=== PATIENT | female | born 1990 | race African-American/Black ===

== ENCOUNTER 2017-02-02 08:17 | Emergency (ER) | payer OTHER ==
[~2017-02-02] VITALS: Ht 165.1 cm; Wt 67.3 kg
[2017-02-02 08:20] VITALS: BP 142/79
== END 2017-02-02 08:52 | disposition home or self-care (01) ==
LOC: EMS 08:19
DX: J02.9 Acute pharyngitis, unspecified (principal)
CPT/HCPCS: 99283

== ENCOUNTER 2017-06-07 00:15 | Emergency (ER) | payer OTHER ==
[~2017-06-07] VITALS: Ht 162.6 cm; Wt 77.3 kg
[2017-06-07] MEDS ORDERED: KETOROLAC TROMETHAMINE 30 MG/ML VIAL IM ONE (00:45)
[2017-06-07] MEDS ORDERED: ACETAMINOPHEN 325 MG TABLET PO ONE (01:00)
[2017-06-07 01:09] LABS: BASOPHILS % (AUTO) 0.9 % (0.0-2.0); HEMATOCRIT 38.5 % (36-46); HEMOGLOBIN 13.3 g/dL (12.0-16.0); LYMPHOCYTES # (AUTO) 3.2 K/uL (1.0-4.8); LYMPHOCYTES % (AUTO) 43.5 % (22.0-44.0); MEAN CORPUSCULAR HEMOGLOBIN 28.3 pg (26.0-34.0); MEAN CORPUSCULAR HGB CONC 34.5 G/dL (31.0-37.0); MEAN CORPUSCULAR VOLUME 82 fL (80-100); MONOCYTES # (AUTO) 0.6 K/uL (0.1-1.0); MONOCYTES % (AUTO) 8.7 % (2.0-9.0); NEUTROPHILS # (AUTO) 3.2 K/uL (1.8-7.7); NEUTROPHILS % (AUTO) 43.9 % (40.0-70.0); PLATELET COUNT (AUTO) 238 K/uL (150-450); RED BLOOD CELL COUNT(AUTO) 4.69 MIL/uL (4.00-5.20); WHITE BLOOD COUNT (AUTO) 7.3 K/uL (4.5-11.0)
[2017-06-07 01:16] LABS: ANION GAP 5 mmol/L (8-16); CALCIUM, TOTAL 9.6 mg/dL (8.8-10.5); CARBON DIOXIDE 31 mmol/L (22-29); CHLORIDE 103 mmol/L (98-107); CREATININE 1.14 mg/dL (0.60-1.30); GLOMERULAR FILTR. RATE CALC > 60 mL/min (>60); SODIUM SERUM 139 mmol/L (136-145); UREA NITROGEN, BLOOD 18 mg/dL (7-18)
[2017-06-07 01:22] LABS: ALANINE AMINOTRANSFERASE 20 U/L (12-78); ALBUMIN 3.7 g/dL (3.4-5.0); ASPARTATE AMINOTRANSFERASE 19 U/L (15-37); BILIRUBIN,TOTAL 0.4 mg/dL (0.1-1.0); TOTAL PROTEIN, SERUM 7.9 g/dL (6.4-8.2)
[2017-06-07 02:35] LABS: APPEARANCE,URINE CLEAR (CLEAR); GLUCOSE, URINE (UA) NEGATIVE (NEGATIVE); KETONES,URINE NEGATIVE (NEGATIVE); LEUKOCYTE ESTERASE ,URINE NEGATIVE (NEGATIVE); OCCULT BLOOD,URINE NEGATIVE (NEGATIVE); PROTEIN,URINE NEGATIVE (NEGATIVE)
[2017-06-07 02:46] LABS: RBC,URINE None Seen /HPF (0-2); WBC,URINE None Seen /HPF (0-5)
[2017-06-07 03:12] VITALS: BP 128/80
== END 2017-06-07 03:12 | disposition home or self-care (01) ==
LOC: EMS 00:16
DX: G43.909 Migraine, unspecified, not intractable, without status migrainosus (principal)
CPT/HCPCS: 36415; 80053; 81001; 84703; 85025; 93005; 96372; 99285; J1885

== ENCOUNTER 2024-07-16 18:51 | Emergency (ER) | payer BC, OTHER ==
[~2024-07-16] VITALS: Ht 165.1 cm; Wt 40.9 kg
[2024-07-16] MEDS ORDERED: ESCI5TAB16 PO (19:03)
[2024-07-16] MEDS ORDERED: BUPR-562 PO (19:03)
[2024-07-16] MEDS ORDERED: AMLO5TAB66 PO (19:03)
[2024-07-16 19:12] LABS: COVID AG,FIA SOURCE NASAL SWAB
[2024-07-16 19:22] LABS: RAPID GROUP A STREP NEGATIVE (NEGATIVE)
[2024-07-16 19:32] LABS: INFLUENZA TYPE A NEGATIVE FOR TYPE A (NEGATIVE); INFLUENZA TYPE B NEGATIVE FOR TYPE B (NEGATIVE); SARS-COV2 (COVID) ANTIGEN,FIA Negative (Negative)
[2024-07-16 19:45] VITALS: TEMP 98.6
[2024-07-16] MEDS ORDERED: GUAI-1217 PO (21:33)
[2024-07-16] MEDS ORDERED: BENZ-227 PO (21:33)
[2024-07-16] MEDS ORDERED: IBUP-1492 PO (21:33)
[2024-07-16] MEDS: GuaiFENesin/CODEINE [SUGAR-FREE] 200-20MG/10 ML LIQUID UDCUP PO ONE (21:59)
[2024-07-16] MEDS: IBUPROFEN 600 MG TABLET PO ONE (21:59)
[2024-07-16 22:08] VITALS: BP 119/74; PULSE 84; RESP 16; O2SAT 99
== END 2024-07-16 22:17 | disposition home or self-care (01) ==
LOC: EMS 18:51
DX: J02.8 Acute pharyngitis due to other specified organisms (principal); B97.89 Other viral agents as the cause of diseases classified elsewhere; I10 Essential (primary) hypertension; F32.A Depression, unspecified; Z79.899 Other long term (current) drug therapy; Z20.822 Contact with and (suspected) exposure to COVID-19
CPT/HCPCS: 87430; 87804; 99283

== ENCOUNTER 2024-11-10 14:36 | Emergency (ER) | payer BC, OTHER ==
[~2024-11-10] VITALS: Ht 165.1 cm; Wt 84.1 kg
[~2024-11-10 14:36] MED LIST: AMLO5TAB66 PO; BENZ-227 PO; BUPR-722 PO; ESCI5TAB16 PO; GUAI-1217 PO; IBUP-1492 PO
[2024-11-10 14:50] VITALS: TEMP 98.1
[2024-11-10 15:41] LABS: BASOPHILS % (AUTO) 0.8 % (0.0-2.0); EOSINOPHILS % (AUTO) 0.3 % (1.0-6.0); HEMATOCRIT 41.7 % (36-46); HEMOGLOBIN 14.1 g/dL (12.0-16.0); LYMPHOCYTES # (AUTO) 1.4 K/uL (1.0-4.8); LYMPHOCYTES % (AUTO) 17.7 % (22.0-44.0); MEAN CORPUSCULAR HEMOGLOBIN 27.2 pg (26.0-34.0); MEAN CORPUSCULAR HGB CONC 33.9 G/dL (31.0-37.0); MEAN CORPUSCULAR VOLUME 80 fL (80-100); MONOCYTES # (AUTO) 0.4 K/uL (0.1-1.0); MONOCYTES % (AUTO) 4.5 % (2.0-9.0); NEUTROPHILS # (AUTO) 6.3 K/uL (1.8-7.7); NEUTROPHILS % (AUTO) 76.7 % (40.0-70.0); PLATELET COUNT (AUTO) 330 K/uL (150-450); RED BLOOD CELL COUNT(AUTO) 5.21 MIL/uL (4.00-5.20); RED CELL DISTRIBUTION WIDTH 14.9 % (11.5-14.5); WHITE BLOOD COUNT (AUTO) 8.2 K/uL (4.5-11.0)
[2024-11-10 15:51] LABS: ANION GAP 12 mmol/L (8-16); CALCIUM, TOTAL 9.3 mg/dL (8.8-10.5); CARBON DIOXIDE 26 mmol/L (22-29); CHLORIDE 102 mmol/L (98-107); CREATININE 1.02 mg/dL (0.60-1.30); GLOMERULAR FILTR. RATE CALC > 60 mL/min (>60); GLUCOSE,RANDOM 85 mg/dL (70-110); POTASSIUM 4.1 mmol/L (3.5-5.1); SODIUM SERUM 140 mmol/L (136-145); UREA NITROGEN, BLOOD 14 mg/dL (7-18)
[2024-11-10 17:40] VITALS: BP 135/94; PULSE 110; RESP 16; O2SAT 100
[2024-11-10 18:01] LABS: APPEARANCE,URINE CLEAR (CLEAR); BILIRUBIN,URINE NEGATIVE (NEGATIVE); COLOR,URINE LIGHT YELLOW (YELLOW); GLUCOSE, URINE (UA) NEGATIVE (NEGATIVE); LEUKOCYTE ESTERASE ,URINE NEGATIVE (NEGATIVE); NITRATE,URINE NEGATIVE (NEGATIVE); OCCULT BLOOD,URINE NEGATIVE (NEGATIVE); PH,URINE 5.5 (5.0-8.0); PROTEIN,URINE 30-70 mg/dL (NEGATIVE); SPECIFIC GRAVITIY, URINE 1.017 (1.003-1.030); UROBILINOGEN,URINE <=1.0 mg/dL (<=1.0)
[2024-11-10] MEDS ORDERED: DIPH50CA37 PO (18:08)
[2024-11-10] MEDS ORDERED: ONDA-104 PO (18:08)
[2024-11-10] MEDS: ONDANSETRON HCL 4 MG/2 ML VIAL IVP ONE (18:16)
[2024-11-10] MEDS: DiphenhydrAMINE HCL 25 MG CAPSULE PO ONE (18:16)
== END 2024-11-10 18:41 | disposition home or self-care (01) ==
LOC: EMS 14:41
DX: R11.10 Vomiting, unspecified (principal); I10 Essential (primary) hypertension; F32.A Depression, unspecified; Z79.899 Other long term (current) drug therapy
CPT/HCPCS: 99283; 96374; 80048; 81003; 84703; 85025; 36415; J2405